=== PATIENT | male | born 1985 | race Caucasian/White ===

== ENCOUNTER 2019-05-06 23:36 | Emergency (ER) | payer OTHER ==
[~2019-05-06] VITALS: Ht 185.4 cm; Wt 90.9 kg
[~2019-05-06 23:36] MED LIST: ACYC-113 PO; AMOX1TAB64 PO; HYDR-3240 PO; VALA10007 PO
[2019-05-07 00:30] LABS: BASOPHILS # (AUTO) 0.03 x10^3/uL (0-0.1); BASOPHILS % (AUTO) 0 % (0-1); EOSINOPHILS # (AUTO) 0.04 x10^3/uL (0-0.4); EOSINOPHILS % (AUTO) 1 % (1-7); LYMPHOCYTES # (AUTO) 1.12 x10^3/uL (1-3.4); LYMPHOCYTES % (AUTO) 13 % (22-44); MD NO; MEAN CORPUSCULAR HEMOGLOBIN 31.6 pg (27.5-34.5); MEAN CORPUSCULAR HGB CONC 34.1 g/dL (33.2-36.2); MEAN CORPUSCULAR VOLUME 92.9 fL (81-97); MEAN PLATELET VOLUME 8.6 fL (7.4-10.4); MONOCYTES # (AUTO) 0.43 x10^3/uL (0.2-0.8); MONOCYTES % (AUTO) 5 % (2-9); NEUTROPHILS # (AUTO) 6.94 x10^3/uL (1.8-6.8); NEUTROPHILS % (AUTO) 81 % (42-75); PLATELET COUNT 190 x10^3/uL (130-400); RED BLOOD COUNT 4.69 x10^6/uL (4.38-5.82); RED CELL DISTRIBUTION WIDTH 13.4 % (9.4-14.8)
[2019-05-07 00:39] LABS: ALANINE AMINOTRANSFERASE 42 U/L (12-78); ALBUMIN 4.1 g/dL (3.4-5.0); ANION GAP 6 mmol/L (5-15); CALCIUM 8.9 mg/dL (8.5-10.1); CHLORIDE 108 mmol/L (98-107); CREATININE 0.96 mg/dL (0.7-1.3)
[2019-05-07 00:41] LABS: ALKALINE PHOSPHATASE 61 U/L (45-117); BILIRUBIN,TOTAL 0.6 mg/dL (0.2-1.0); TOTAL PROTEIN 7.5 g/dL (6.4-8.2)
[2019-05-07] MEDS ORDERED: KETOROLAC 30 MG/1 ML IM ONE (01:30)
[2019-05-07] MEDS ORDERED: KETOROLAC 30 MG/1 ML ONE (01:35)
--- NOTE | 2019-05-07 01:39 | NUR ---
pt medicated per may. poc discussed. pt up to restroom at this time. pt denies further needs at this time.
[2019-05-07 01:40] VITALS: BP 115/74
== END 2019-05-07 02:07 | disposition home or self-care (01) ==
LOC: ED 05-07 00:36
DX: R10.11 Right upper quadrant pain (principal); Z90.89 Acquired absence of other organs
CPT/HCPCS: 36415; 76700; 80053; 83690; 85025; 96372; 99284; J1885